=== PATIENT | male | born 1955 | race Caucasian/White ===

== ENCOUNTER 2019-10-27 10:14 | Day surgery (SDC) | payer OTHER, SELFPAY ==
[~2019-10-27] VITALS: Ht 172.7 cm; Wt 89.8 kg
[2019-10-27] MEDS ORDERED: MIDAZOLAM 2 MG/2 ML VIAL ONE (11:06)
[2019-10-27] MEDS ORDERED: fentaNYL citrate 0.05 MG/ML VIAL ONE (11:06)
[2019-10-27] MEDS: MIDAZOLAM 2 MG/2 ML VIAL IVP ONE (11:09)
[2019-10-27] MEDS: fentaNYL citrate 0.05 MG/ML VIAL IVP ONE (11:10)
[2019-10-27] MEDS: LIDOCAINE 2% 100 MG/5 ML UJET TP ONE (11:11)
== END 2019-10-27 12:20 | disposition home or self-care (01) ==
LOC: MFCC 10:14 → MDS 10:14
PROVIDERS: ATTEND Internal Medicine Gastroenterology
DX: Z09 Encounter for follow-up examination after completed treatment for conditions other than malignant neoplasm (principal); K92.2 Gastrointestinal hemorrhage, unspecified; K76.89 Other specified diseases of liver; Z79.82 Long term (current) use of aspirin; Z79.899 Other long term (current) drug therapy; Z87.891 Personal history of nicotine dependence; Z98.890 Other specified postprocedural states; Z20.828 Contact with and (suspected) exposure to other viral communicable diseases
CPT/HCPCS: 45378; J2250; J3010; U0003

== ENCOUNTER 2023-10-21 15:12 | Emergency (ER) | payer OTHER ==
[~2023-10-21] VITALS: Ht 170.2 cm; Wt 104.4 kg
[2023-10-21 15:22] VITALS: BP 99/48; PULSE 88; RESP 18; TEMP 98.1; O2SAT 93
[2023-10-21 16:02] VITALS: O2SAT 93
[2023-10-21] MEDS: KETOROLAC 30 MG/ML VIAL IM ONE (16:08)
[2023-10-21] MEDS: BACITRACIN OINT 500 UNITS/GM PKT TP ONE ×2 (16:58→16:59)
[2023-10-21] MEDS ORDERED: BACI-418 TP (17:01)
[2023-10-21] MEDS ORDERED: CEPH-588 PO (17:01)
== END 2023-10-21 17:18 | disposition home or self-care (01) ==
LOC: MED 15:12
DX: T24.201A Burn of second degree of unspecified site of right lower limb, except ankle and foot, initial encounter (principal); S80.11XA Contusion of right lower leg, initial encounter; R07.89 Other chest pain; E11.9 Type 2 diabetes mellitus without complications; I50.9 Heart failure, unspecified; C61 Malignant neoplasm of prostate; Z79.899 Other long term (current) drug therapy; V28.09XA Other motorcycle driver injured in noncollision transport accident in nontraffic accident, initial encounter; Y92.410 Unspecified street and highway as the place of occurrence of the external cause; Y93.89 Activity, other specified; Y99.8 Other external cause status
CPT/HCPCS: 16020; 71045; 73590; 73610; 90471; 90715; 96372; 99284; J1885